=== PATIENT | male | born 1955 | race Caucasian/White ===

== ENCOUNTER 2019-10-22 17:52 | Inpatient (IN) | payer MEDICARE ==
[~2019-10-22] VITALS: Ht 180.3 cm; Wt 112.5 kg
[~2019-10-22 17:52] MED LIST: METF500 PO
[2019-10-22] MEDS ORDERED: Lasix20 MG (18:02)
[2019-10-22 18:35] LABS: BASOPHILS ABSOLUTE AUTO 0.07 K/mm3 (0.00-0.23); BASOPHILS PERCENT AUTO 1 % (0-2); EOSINOPHILS ABSOLUTE AUTO 0.11 K/mm3 (0.00-0.68); EOSINOPHILS PERCENT AUTO 1 % (0-6); Hematocrit 47.6 % (37.0-53.0); Hemoglobin 14.8 g/dL (13.5-17.5); IMMATURE GRAN ABSOLUTE AUTO 0.04 K/mm3 (0.00-0.10); IMMATURE GRAN PERCENT AUTO 1 % (0-1); LYMPHOCYTES ABSOLUTE AUTO 1.78 K/mm3 (0.84-5.20); LYMPHOCYTES PERCENT AUTO 21 % (21-46); MONOCYTES ABSOLUTE AUTO 0.82 K/mm3 (0.16-1.47); MONOCYTES PERCENT AUTO 9 % (4-13); Mean Corpuscular HGB 26.2 pg (26.0-34.0); Mean Corpuscular HGB Conc 31.1 g/dL (31.5-36.5); Mean Corpuscular Volume 84 fL (80-100); Mean Platelet Volume 11.3 fL (9.1-12.4); NEUTROPHILS ABSOLUTE AUTO 5.87 K/mm3 (1.96-9.15); NEUTROPHILS PERCENT AUTO 68 % (41-73); Platelet Count 196 K/mm3 (150-400); RDW Coefficient Variation 13.8 % (11.7-14.2); RDW Standard Deviation 42.5 fL (35.1-46.3); Red Blood Cell Count 5.65 M/mm3 (4.30-5.90); White Blood Cell Count 8.69 K/mm3 (4.00-11.30)
[2019-10-22 18:54] LABS: Anion Gap 10 mmol/L (6-16); Blood Urea Nitrogen 13 mg/dL (8-24); Bun/Creatinine Ratio 14.9 (12.0-20.0); CO2, Blood 23 mmol/L (21-32); Calcium, Blood 8.9 mg/dL (8.5-10.1); Chloride, Blood 102 mmol/L (98-108); Creatinine, Blood 0.88 mg/dL (0.60-1.20); Glomerular Filtration Rate >60 (60-); Glucose, Blood 346 mg/dL (70-99); Potassium, Blood 4.3 mmol/L (3.5-5.5); Sodium, Blood 135 mmol/L (136-145); Troponin I 0.032 ng/mL (0.000-0.040)
[2019-10-22 19:42] LABS: D-Dimer, Quantitative 2.27 mg/L FEU (0.00-0.52)
[2019-10-22 21:21] LABS: International Normalized Ratio 1.21; Prothrombin Time Results 12.8 Sec (9.7-11.5)
[2019-10-22] MEDS ORDERED: METF500 PO (21:58)
[2019-10-23 02:41] LABS: BASOPHILS ABSOLUTE AUTO 0.08 K/mm3 (0.00-0.23); BASOPHILS PERCENT AUTO 1 % (0-2); EOSINOPHILS PERCENT AUTO 2 % (0-6); Hematocrit 44.7 % (37.0-53.0); Hemoglobin 14.2 g/dL (13.5-17.5); IMMATURE GRAN ABSOLUTE AUTO 0.03 K/mm3 (0.00-0.10); IMMATURE GRAN PERCENT AUTO 0 % (0-1); LYMPHOCYTES ABSOLUTE AUTO 1.95 K/mm3 (0.84-5.20); LYMPHOCYTES PERCENT AUTO 24 % (21-46); MONOCYTES PERCENT AUTO 10 % (4-13); Mean Corpuscular HGB 26.3 pg (26.0-34.0); Mean Corpuscular HGB Conc 31.8 g/dL (31.5-36.5); Mean Corpuscular Volume 83 fL (80-100); Mean Platelet Volume 11.6 fL (9.1-12.4); NEUTROPHILS ABSOLUTE AUTO 5.22 K/mm3 (1.96-9.15); NEUTROPHILS PERCENT AUTO 63 % (41-73); Platelet Count 190 K/mm3 (150-400); RDW Coefficient Variation 13.9 % (11.7-14.2); RDW Standard Deviation 41.3 fL (35.1-46.3); Red Blood Cell Count 5.39 M/mm3 (4.30-5.90); White Blood Cell Count 8.28 K/mm3 (4.00-11.30)
[2019-10-23 03:03] LABS: Alanine Aminotransfer (ALT/SGP 40 U/L (12-78); Albumin, Blood 2.8 g/dL (3.4-5.0); Albumin/Globulin Ratio 0.9 (0.8-1.8); Alk Phos 142 U/L (50-136); Anion Gap 10 mmol/L (6-16); Aspartate Aminotrans (AST/SGOT 25 U/L (12-37); Bilirubin, Total 1.2 mg/dL (0.1-1.0); Blood Urea Nitrogen 14 mg/dL (8-24); Bun/Creatinine Ratio 16.9 (12.0-20.0); CO2, Blood 24 mmol/L (21-32); Calcium, Blood 8.3 mg/dL (8.5-10.1); Chloride, Blood 103 mmol/L (98-108); Creatinine, Blood 0.83 mg/dL (0.60-1.20); Globulin, Blood 3.2 g/dL (2.2-4.0); Glomerular Filtration Rate >60 (60-); Glucose, Blood 345 mg/dL (70-99); Sodium, Blood 137 mmol/L (136-145); Troponin I 0.034 ng/mL (0.000-0.040)
--- NOTE | 2019-10-23 05:03 | NUR ---
SHIFT SUMMARY PT WAS NEW ER ADMIT THIS SHIFT (2229), NO ACUTE CHANGES SINE ASSUMING CARE, NO C/O ANY KIND, PT A&O PLEASANT & COOPERATIVE W/CARE, INDEP IN ROOM, BEDRESTING AT THIS TIME, WILL CONT TO MONITOR UNTIL REPORT GIVEN TO DAY RN.
--- NOTE | 2019-10-23 18:04 | NUR ---
SHIFT SUMMARY PATIENT DENIES PAIN, NAUSEA, AND SHORTNESS OF BREATH. PATIENT UP INDEPENDENT IN ROOM. PATIENT HAD ECHO TODAY. DR. YANG CONSULTED. PATIENT TO HAVE ANGIO TOMORROW. PATIEN NPO AT MIDNIGHT BUT MAY HAVE LIGHT BREAKFAST PER HEART CENTER. ANGIO WILL BE IN EARLY AFTERNOON. HEPARIN DRIP RUNNING AT 15 U/KG. CALL LIGHT IN REACH.
[2019-10-24 05:22] LABS: Mean Platelet Volume 11.8 fL (9.1-12.4); Platelet Count 188 K/mm3 (150-400)
--- NOTE | 2019-10-24 05:47 | NUR ---
SHIFT SUMMARY PT IS A 63 Y/O MALE, ADMITTED FOR BL PULMONARY EMBOLI. HE IS A&O X 4, AND INDEPENDENT IN THE ROOM. PT HAD AN ECHO THAT SHOWED A LV THROMBUS, AND HAS BEEN NPO SINCE MIDNIGHT IN PREP FOR AN ANGIO TODAY. TELE SHOWED ST IN THE 100S. ALL OTHER VITAL SIGNS STABLE. NO COMPLAINTS OF PAIN, SOB OR NAUSEA. PT IS ON A CONTINUOUS HEPARIN DRIP, CURRENTLY AT 15 U/KG OR 26.7 ML/HR. NO ACUTE CHANGES IN PT CONDITION NOTED. WILL CONTINUE TO MONITOR AND TREAT PER EMAR UNTIL HAND OFF TO DAY SHIFT RN.
--- NOTE | 2019-10-24 12:40 | NUR ---
TRANSFER TO HEART CENTER PATIENT TAKEN VIA WHEELCHAIR TO HEART CENTER FOR ANGIOGRAM. BELONGINGS WILL BE TRANSFERED WHEN NEW ROOM ASSIGNMENT GIVEN.
--- NOTE | 2019-10-24 14:37 | NUR ---
TRANSFER TO PCU REPORT CALLED TO RECEIVING NURSE FRANCY. BELONGING SENT TO PCU.
--- NOTE | 2019-10-24 18:11 | NUR ---
TRANSFER NOTE RECEIVED REPORT FROM TAMEKA WICK FROM MEDICAL UNIT AND BEDSIDE REPORT FROM [facility]. PT TO ROOM AT 1405; VARINDER DRESSING TO RIGHT BRACHIAL SITE AND TR BAND IN PLACE TO RIGHT RADIAL SITE; NO BLEEDING, BRUISING OR HEMATOMA NOTED. PT A&Ox4; CALM AND COOPERATIVE WITH CARE. PT 1 PERSON ASSIST IN ROOM. PT DENIES PAIN, CHEST PAIN PRESSURE, SOB, NAUSEA AND DIZZINESS. VSS. NO OTHER ACUTE CHANGES NOTED DURING SHIFT.
--- NOTE | 2019-10-24 22:20 | NUR ---
UPDATE STAFF ENTERED ROOM TO GIVEN PATIENT'S MEDICATION AND PATIENT WAS SLEEPING. UPON AWAKING UP PATIENT WAS MIXING UP WORDS, CALLING THE DOOR A WINDOW AND CONFUSING COLD WITH WARM. PATIENT STATED THAT HE THINKS HE DOES THIS AT HOME TOO BUT HE'S NOT SURE IF ITS WORSE THAN NORMAL. PATIENT THEN STARTED COMPLAINING OF A HEADACHE WELL THAT HE RATED A 3/10. RN CALLED PATIENT'S SISTER TO ASK IF IT IS NORMAL FOR PATIENT TO MIX UP WORDS AND SHE STATED THAT IT WAS. PATIENT'S SISTER, GEOFFREY CALLED HIM AND SPOKE WITH HIM THEN SHE TOLD STAFF THAT HE WAS INTERACTING AND SPEAKING WITH HER NORMALLY AT THIS TIME. SHE STATED HE SOMETIMES MIXES WORDS UP MORE WHEN HE IS IN NEW SURROUNDINGS HE CAN GET SLIGHTLY CONFUSED, ESPECIALLY UPON WAKING UP. WAITING FOR A CALL BACK FROM NURSE PRACTIONER JUS TO UPDATE.
[2019-10-25 04:10] LABS: Anion Gap 8 mmol/L (6-16); Blood Urea Nitrogen 17 mg/dL (8-24); Bun/Creatinine Ratio 19.9 (12.0-20.0); CO2, Blood 28 mmol/L (21-32); Calcium, Blood 8.3 mg/dL (8.5-10.1); Chloride, Blood 102 mmol/L (98-108); Creatinine, Blood 0.86 mg/dL (0.60-1.20); Glomerular Filtration Rate >60 (60-); Glucose, Blood 204 mg/dL (70-99); Potassium, Blood 3.2 mmol/L (3.5-5.5); Sodium, Blood 138 mmol/L (136-145)
[2019-10-25 04:12] LABS: International Normalized Ratio 1.2; Prothrombin Time Results 12.7 Sec (9.7-11.5)
--- NOTE | 2019-10-25 08:00 | NUR ---
SHIFT SUMMARY PATIENT APPEARS TO HAVE SLEPT WELL THROUGHOUT THE NIGHT. PATIENT APPEARS SLIGHTLY CONFUSED AND FORGETFUL AT TIMES, ESPECIALLY UPON WAKING UP. PATIENT MIXES UP HIS WORDS AND APPEARS CONFUSED FOR SEVERAL MINUTES BEFORE APPEARING TO CLEAR UP AFTER WAKING UP. HEPARIN GTT RUNNING PER ORDERS. PATIENT VERY ANXIOUS ABOUT HIS PLAN OF CARE AND WHEN HE WILL BE ABLE TO BE DISCHARGED. PATIENT PROVIDED WITH APPROPRIATE EDUCATION AND SUPPORT. REPORT GIVEN TO ONCOMING RN.
--- NOTE | 2019-10-25 12:00 | NUR ---
PCU TRANSFER TO MEDICAL FLOOR SUMMARY PATIENT ALERT AND ORIENTED TO SELF, LOCATION AND TIME/DATE. LIFEVEST IN PLACE. RESP E/U ON ROOM AIR AND VSS. PATIENT DENIES ANY PAIN OR PRESSURE. RIGHT RADIAL SITE NOTED WITH TEGADERM AND ARM BOARD IN PLACE, NO S/SX OF BLEEDING OR HEMATOMA. RIGHT BRACHIAL SITE ALSO NOTED WITH VARINDER AND TEGADERM IN PLACE - BRUISING NOTED AND VERIFIED WITH NOC SHIFT RN THAT IT HAD REMAINED UNCHANGED. PATIENT SBA TO BATHROOM. HEPARIN GTT RUNNING PER EMAR. PATIENT EDUCATED ON COUMADIN BRIDGE, EF AND DM. REPORTED TO STUDENT NURSE, WITH CARLOS MUNOZ RN ON MEDICAL FLOOR. PATIENT LEFT UNIT VIA WHEELCHAIR TO MEDICAL FLOOR. NO S/SX OF DISTRESS NOTED.
--- NOTE | 2019-10-25 14:48 | NUR ---
LATE ENTRY FOR 1245 RECEIVED REPORT FROM LINETTE ENGLISH FROM PCU. PT ARRIVED TO UNIT AT 1237. PT ORIENTED TO ROOM AND GIVEN CALL LIGHT. PT DENIES ANY FURTHER NEEDS AT THIS TIME. PT DENIES ANY PAIN OR NAUSEA.
--- NOTE | 2019-10-25 18:29 | NUR ---
SHIFT SUMMARY: PT ARRIVED FROM PCU TODAY. PT A&O X4 AND INDEPENDENT. LUNGS DIMINISHED. VSS. PT REPORTS FEELING SHORT OF BREATH WHEN MOVING AROUND. PT PULLED IV OUT AND NEW IV STARTED IN LFA. HEPARIN DRIP RESTARTED WITH NEW IV AND NIKKO AT PHARMACY WAS INFORMED OF DRIP BEING STOPPED FROM 1744 TO 1804. WILL CONTINUE TO MONITOR PT UNTIL GIVING REPORT TO NIGHT RN.
--- NOTE | 2019-10-26 02:56 | NUR ---
0215 PT WAS FOUND TO HAVE GOWN OFF, TELE OFF AND IV ON THE BED. PHARMACY NOTIFIED HEPARIN HAS BEEN STOPPED. PT DID SEEM CONFUSED. TELE REAPPLIED, NEW IV INSERTED BY TIO Delarosa RN. HEPARIN DRIP BACK UP RUNNING AT 0245. PHARMACY NOTIFIED HEPARIN DRIP RUNNING AGAIN. BED ALARM HAS BEEN ON ALL NIGHT.
--- NOTE | 2019-10-26 07:42 | NUR ---
CARDIAC MONITOR SUMMARY PT APPEARED CONFUSED TONIGHT. BED ALARM ON. DENIES PAIN, DIZZINIESS. PT HAS TRIED TO GET OUT OF BED A FEW TIMES TONIGHT WITHOUT USING CALL MOORE. PT APPEARED UPSET AND AGITATED THAT STAFF COMES IN EACH TIME HE GETS OUT OF BED. PT STATES THAT HE LIKES TO BE INDEPENDENT HE WAS DURING THE DAY SHIFT. HOWEVER, PT HAS MULTIPLE LINES AND TUBING. HE WAS EDUCATED THAT STAFF IS THERE TO ASSIST HIM BECAUSE HE IS A FALL RISK. HE STATED HE WAS GOING TO LEAVE PER OTHER RN I WAS IN ANOTHER PT'S ROOM. WHEN I WENT TO PT'S ROOM, PT WAS STANDING BY BED AND HAD QUESTIONS ABOUT HIS TREATMENT AND ASKING ABOUT WHEN HE WAS GOING TO HAVE "A MEETING". PT POINTED TO HIS CONT HEPARIN DRIP AND ASKED WHAT IT WAS. THIS WAS HUNG IN DAYSHIFT. PT STATED HE DOES NOT KNOW WHY HE IS RECIEVING IT HE POINTED TO THE HEPARIN DRIP. I EDUCATED PT THAT IT WAS TO HELP WITH HIS PE AND LISTENED TO HIS CONCERNS. ASSISTED PT BACK TO BED. BED ALARM ON. LIFE VEST HAS BEEN WORE ALL NIGHT. REPORT GIVEN TO AM NURSE.
[2019-10-26 08:38] LABS: Mean Platelet Volume 11.5 fL (9.1-12.4); Platelet Count 192 K/mm3 (150-400)
[2019-10-26 08:50] LABS: International Normalized Ratio 1.33
[2019-10-26] MEDS ORDERED: Aspirin EC81 MG PO (14:36)
[2019-10-26] MEDS ORDERED: ATOR40TA PO (14:36)
[2019-10-26] MEDS ORDERED: METO50ER PO (14:36)
[2019-10-26] MEDS ORDERED: WARF5 PO (14:37)
[2019-10-26] MEDS ORDERED: ENTRESTO 24 MG1 EACH PO (14:37)
[2019-10-26] MEDS ORDERED: FURO40 PO (14:37)
[2019-10-26] MEDS ORDERED: ENOX120I SC (14:38)
--- NOTE | 2019-10-26 17:03 | NUR ---
PATIENT DISCHARGED TO HOME IN THE COMPANY OF HIS SISTER, TAKEN DOWSTAIRS VIA W/C AT 1543. IV SL REMOVED WITHOUT INCIDENT. PRINTED COUMADIN PATIENT EDUCATION, GAVE WITH D/C INSTRUCTIONS; POINTED OUT DIETARY RESTRICTIONS AND SAFETY WITH REGARDS TO THIS DRUG. PATIENT STATED HE WILL READ IT AT HOME AND DISCUSS WITH HIS PCP AT NEXT APPOINTMENT. ALSO, PT GAVE ADEQUATE RETURN DEONSTRATION OF SELF INJECTING LOVENOX PRIOR TO D/C.
[2019-10-27] MEDS ORDERED: Prinivil10 MG PO (12:44)
== END 2019-10-26 15:43 | disposition home health service (06) | DRG 286 ==
LOC: ER 17:52 → MEDS 17:53 → PCU 10-24 14:03 → MEDS 10-25 12:37
PROVIDERS: Emergency Medicine; Internal Medicine Interventional Cardiology; ADMIT Internal Medicine
PROC: 4A023N6 Measurement of Cardiac Sampling and Pressure, Right Heart, Percutaneous Approach (ICD-10-PCS; principal; 2019-10-24)
PROC: B2111ZZ Fluoroscopy of Multiple Coronary Arteries using Low Osmolar Contrast (ICD-10-PCS; 2019-10-24)
PROC: 4A1239Z Monitoring of Cardiac Output, Percutaneous Approach (ICD-10-PCS; 2019-10-24)
DX: I50.23 Acute on chronic systolic (congestive) heart failure (principal); I26.99 Other pulmonary embolism without acute cor pulmonale; I42.8 Other cardiomyopathies; I51.3 Intracardiac thrombosis, not elsewhere classified; I50.20 Unspecified systolic (congestive) heart failure; Z95.5 Presence of coronary angioplasty implant and graft; I25.10 Atherosclerotic heart disease of native coronary artery without angina pectoris; E11.9 Type 2 diabetes mellitus without complications; Z79.84 Long term (current) use of oral hypoglycemic drugs; R09.02 Hypoxemia
CPT/HCPCS: 36415; 71260; 76937; 80048; 80053; 81241; 82947; 83036; 83735; 83880; 84484; 85025; 85049; 85300; 85303; 85306; 85347; 85379; 85610; 85730; 92523; 93005; 93010; 93456; 93970; 96365; 96375; 99285-25; A9270; A9270-GY; C1769; C1894; C8929; G0378; J1644; J1650; J1940; J2250; J3010; J7030; J7040; Q9957; Q9967

== ENCOUNTER 2019-10-27 12:07 | Emergency (ER) | payer MEDICARE ==
[~2019-10-27] VITALS: Ht 182.9 cm; Wt 106.6 kg
[~2019-10-27 12:07] MED LIST changes: +ATOR40TA PO; +Aspirin EC81 MG PO; +ENOX120I SC; +ENTRESTO 24 MG1 EACH PO; +FURO40 PO; +Lasix20 MG; +METO50ER PO; +WARF5 PO
[2019-10-27] MEDS ORDERED: Prinivil10 MG PO (12:44)
== END 2019-10-27 12:48 | disposition home or self-care (01) ==
LOC: ER 12:07
DX: Z51.81 Encounter for therapeutic drug level monitoring (principal); Z79.899 Other long term (current) drug therapy; I50.9 Heart failure, unspecified; E11.9 Type 2 diabetes mellitus without complications; Z79.84 Long term (current) use of oral hypoglycemic drugs; Z79.82 Long term (current) use of aspirin
CPT/HCPCS: 99281

== ENCOUNTER → 2019-10-28 | Outpatient (CLI) | payer MEDICARE ==
[~2019-10-28] MED LIST changes: +Prinivil10 MG PO
[2019-10-28 14:05] LABS: BASOPHILS ABSOLUTE AUTO 0.03 K/mm3 (0.00-0.23); BASOPHILS PERCENT AUTO 0 % (0-2); EOSINOPHILS ABSOLUTE AUTO 0.06 K/mm3 (0.00-0.68); EOSINOPHILS PERCENT AUTO 1 % (0-6); Hematocrit 45.1 % (37.0-53.0); Hemoglobin 14.2 g/dL (13.5-17.5); IMMATURE GRAN ABSOLUTE AUTO 0.03 K/mm3 (0.00-0.10); IMMATURE GRAN PERCENT AUTO 0 % (0-1); LYMPHOCYTES ABSOLUTE AUTO 0.84 K/mm3 (0.84-5.20); LYMPHOCYTES PERCENT AUTO 11 % (21-46); MONOCYTES ABSOLUTE AUTO 0.77 K/mm3 (0.16-1.47); MONOCYTES PERCENT AUTO 10 % (4-13); Mean Corpuscular HGB 26.1 pg (26.0-34.0); Mean Corpuscular HGB Conc 31.5 g/dL (31.5-36.5); Mean Corpuscular Volume 83 fL (80-100); Mean Platelet Volume 11.3 fL (9.1-12.4); NEUTROPHILS ABSOLUTE AUTO 5.93 K/mm3 (1.96-9.15); NEUTROPHILS PERCENT AUTO 77 % (41-73); Platelet Count 189 K/mm3 (150-400); RDW Coefficient Variation 14.2 % (11.7-14.2); RDW Standard Deviation 41.8 fL (35.1-46.3); Red Blood Cell Count 5.44 M/mm3 (4.30-5.90); White Blood Cell Count 7.66 K/mm3 (4.00-11.30)
[2019-10-28 14:15] LABS: Alanine Aminotransfer (ALT/SGP 39 U/L (12-78); Albumin, Blood 3.3 g/dL (3.4-5.0); Alk Phos 157 U/L (40-126); Anion Gap 9 mmol/L (6-16); Aspartate Aminotrans (AST/SGOT 25 U/L (12-37); Bilirubin, Total 1.1 mg/dL (0.1-1.0); Blood Urea Nitrogen 17 mg/dL (8-24); Bun/Creatinine Ratio 14.9 (12.0-20.0); CO2, Blood 30 mmol/L (21-32); Calcium, Blood 8.8 mg/dL (8.5-10.1); Chloride, Blood 102 mmol/L (98-108); Creatinine, Blood 1.14 mg/dL (0.60-1.20); Globulin, Blood 3.4 g/dL (2.2-4.0); Glomerular Filtration Rate >60 (60-); Glucose, Blood 253 mg/dL (70-99); Sodium, Blood 141 mmol/L (136-145); Total Protein, Blood 6.7 g/dL (6.4-8.2)
[2019-10-28 14:37] LABS: International Normalized Ratio 1.65; Prothrombin Time Results 17.2 Sec (9.7-11.5)
== END | disposition home or self-care (01) ==
LOC: LAB EV 14:00 → LAB SHORT 14:00
PROVIDERS: General Practice
DX: I26.99 Other pulmonary embolism without acute cor pulmonale (principal)
CPT/HCPCS: 80053; 85025; 85610

== ENCOUNTER → 2019-11-19 | Outpatient (CLI) | payer MEDICARE ==
[2019-11-19 15:10] LABS: Alanine Aminotransfer (ALT/SGP 36 U/L (12-78); Albumin, Blood 3.1 g/dL (3.4-5.0); Albumin/Globulin Ratio 0.8 (0.8-1.8); Alk Phos 230 U/L (40-126); Anion Gap 13 mmol/L (6-16); Aspartate Aminotrans (AST/SGOT 32 U/L (12-37); Bilirubin, Total 1.2 mg/dL (0.1-1.0); Blood Urea Nitrogen 16 mg/dL (8-24); Bun/Creatinine Ratio 13.9 (12.0-20.0); CO2, Blood 27 mmol/L (21-32); Calcium, Blood 9.1 mg/dL (8.5-10.1); Chloride, Blood 101 mmol/L (98-108); Creatinine, Blood 1.15 mg/dL (0.60-1.20); Globulin, Blood 4.1 g/dL (2.2-4.0); Glomerular Filtration Rate >60 (60-); Glucose, Blood 360 mg/dL (70-99); Sodium, Blood 141 mmol/L (136-145); Total Protein, Blood 7.2 g/dL (6.4-8.2)
[2019-11-19 15:48] LABS: International Normalized Ratio 4.48
== END | disposition home or self-care (01) ==
LOC: LAB SHORT 14:44 → LAB EV 14:44
PROVIDERS: Family Medicine
DX: E11.65 Type 2 diabetes mellitus with hyperglycemia (principal); I26.99 Other pulmonary embolism without acute cor pulmonale; I42.0 Dilated cardiomyopathy
CPT/HCPCS: 80053; 83036; 83880; 85610

== ENCOUNTER 2020-02-19 13:21 | Emergency (ER) | payer MEDICARE ==
[~2020-02-19] VITALS: Ht 188 cm; Wt 83.9 kg
== END 2020-02-19 14:43 | disposition home or self-care (01) ==
LOC: ER 13:21
DX: Z01.30 Encounter for examination of blood pressure without abnormal findings (principal); I50.9 Heart failure, unspecified; I25.10 Atherosclerotic heart disease of native coronary artery without angina pectoris; E11.9 Type 2 diabetes mellitus without complications; Z79.84 Long term (current) use of oral hypoglycemic drugs; Z79.82 Long term (current) use of aspirin; Z79.899 Other long term (current) drug therapy; Z79.01 Long term (current) use of anticoagulants
CPT/HCPCS: 99284